=== PATIENT | female | born 1980 | race Caucasian/White ===

== ENCOUNTER 2017-04-21 15:56 | Observation (INO) | payer BC ==
[~2017-04-21] VITALS: Ht 157.5 cm; Wt 90.5 kg
--- NOTE | ~2017-04-21 | CN ---
PATIENT NAME:VICTOR HUGO PLAZA MEDICAL RECORD: [id number] : 76 LOCATION:D. D.2123 ADMIT DATE: 04/21/17 ACCOUNT: [id number] CONSULTING PHYSICIAN: SARAH RIDER MD REFERRING PHYSICIAN: JOY GARCIA MD DATE OF CONSULTATION: 04/22/2017 HISTORY OF PRESENT ILLNESS: A 36-year-old female was followed me with a history of SVT, typically qkzs-lb-lny-pocket therapy episode yesterday that lasted approximately 6 months ago, noninvasive workup negative for ischemic focus. We were asked to her concerning her cardiovascular status. PAST MEDICAL HISTORY: Includes: 1. History of SVT. 2. Remote history of seizure disorder. 3. Migraines. MEDICATIONS: Rythmol, ysjp-ji-wxa-pocket therapy. ALLERGIES: None known. SOCIAL HISTORY: She is a nonsmoker. She is able to take care of her ADLs. 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 REVIEW OF SYSTEMS: The patient reports easy bruising but reports no swollen glands. The patient reports no fever, no night sweats, no significant weight gain, no significant weight loss. No significant exercise tolerance. The patient reports no dry eyes, no irritation, no vision change. Patient reports no difficulty hearing and no ear pain. Patient reports no frequent nose bleeds or nose and sinus problems. Patient reports on arm pain on exertion. No shortness of breath while lying down. No history of heart murmur. Patient reports no cough, no wheezing or coughing up blood. Patient reports no abdominal pain, no vomiting. Normal appetite. No diarrhea and not vomiting blood. No nausea and no constipation. Patient reports no incontinence. No difficulty urinating. No hematuria. No increased frequency. Patient reports no muscle aches. No weakness, no arthralgias, no back pain. No swelling of the extremities. Patient reports no abnormal mole, no jaundice, no rashes. Reports no loss of consciousness. No weakness and no numbness. No seizures, dizziness, or headaches. The patient reports no depression, no sleep disturbance, feeling safe in a relationship and no alcohol abuse. Patient reports on fatigue. Reports no runny nose or sinus pressure. No itching, no hives, and no frequent sneezing. PHYSICAL EXAMINATION: GENERAL: Pleasant female, appears stated age. No acute distress. VITAL SIGNS: Pulse currently 60 and regular, blood pressure 118/64. HEENT: Normocephalic and atraumatic. NECK: No JVD or bruit. HEART: Regular. LUNGS: Levin are clear. ABDOMEN: Soft, nontender. EXTREMITIES: Pulse 2+. No edema. DIAGNOSTIC DATA: ECG is normal. CONSULT REPORT [id number] VICTOR HUGO PLAZA PLAN: We will check echocardiographic study. It has been over a year since her previous study. At this point in time, I do not think we were obligated to daily medications at this point for arrhythmias. TRANSINT:[id number] Voice Confirmation ID: [id number] DOCUMENT ID: [id number] SARAH RIDER MD CC: [id number] DICTATION DATE: 04/22/17839 CONSUMER STUDIES PROFESSOR: 04/22/17 190 [address] [place] [id number] [place] [id number]
[2017-04-21 16:33] LABS: BASOPHILS 0.2 % (0-2); EOSINOPHILS 1.2 % (0-7); HEMATOCRIT 41.3 % (36.0-48.0); HEMOGLOBIN 14.3 g/dL (12-16); IMMATURE GRANULOCYTES 0.2 % (0-5); LYMPHOCYTES 23.5 % (15-50); MCH 29.2 pg (26.0-34.0); MCHC 34.6 g/dL (31.0-37.0); MCV 84.3 fL (80.0-100.0); MEAN PLATELET VOLUME 9.9 fL (7.4-10.4); MONOCYTES 5.3 % (2-11); NEUTROPHILS 69.6 % (40-80); PLATELET COUNT 287 10x3/uL (130-400); RDW 13.2 % (11.5-14.5); WBC 10.8 10x3/uL (4.8-10.8)
[2017-04-21 16:49] LABS: APTT 29.5 SECONDS (22.8-39.4); INR 0.98 (0.85-1.17); PROTIME 12.9 SECONDS (11.6-15.0)
[2017-04-21 16:54] LABS: ALBUMIN 4.2 g/dL (3.4-5.0); ALKALINE PHOSPHATASE 93 U/L (46-116); ALT (SGPT) 59 U/L (10-68); CALC OSMOLALITY 277 mosm/kg (275-300); CALCIUM 9.3 mg/dL (8.5-10.1); CARBON DIOXIDE 24.4 mmol/L (21.0-32.0); CHLORIDE - SERUM 103 mmol/L (98-107); CREATININE - SERUM 0.9 mg/dL (0.6-1.3); GLUCOSE 98 mg/dL (74-106); POTASSIUM - SERUM 3.7 mmol/L (3.5-5.1); PROTEIN - SERUM 7.8 g/dL (6.4-8.2); SODIUM 140 mmol/L (136-145); UREA NITROGEN 11 mg/dL (7-18); eGFR NON AFRICAN AMERICAN 74 mL/min (90-120)
[2017-04-21 17:03] LABS: CHOLESTEROL, TOTAL 218 mg/dL (0-200); CKMB 0.5 U/L (0.0-3.6); CREATINE KINASE 105 UL (21-215); HDL CHOLESTEROL 31 mg/dL (32-96); LDL CHOLESTEROL 130 mg/dL (0-100); LDL-HDL RATIO 4.2 ratio (1.5-3.5); TRIGLYCERIDE 289 mg/dL (30-200); TROPONIN-I < 0.017 ng/mL (0.000-0.060)
[2017-04-21 17:19] LABS: UDS - AMPHET NEGATIVE QUAL (NEGATIVE); UDS - BARB NEGATIVE QUAL (NEGATIVE); UDS - BENZO NEGATIVE QUAL (NEGATIVE); UDS - COCAINE NEGATIVE QUAL (NEGATIVE); UDS - METH NEGATIVE QUAL (NEGATIVE); UDS - OPIATE NEGATIVE QUAL (NEGATIVE); UDS - PCP NEGATIVE QUAL (NEGATIVE); UDS - THC NEGATIVE QUAL (NEGATIVE)
[2017-04-21 17:21] LABS: APPEARANCE HAZY (CLEAR); BILIRUBIN NEGATIVE (NEGATIVE); COLOR STRAW (YELLOW); GLUCOSE NEGATIVE (NEGATIVE); KETONE NEGATIVE (NEGATIVE); LEUKOCYTE ESTERASE TRACE (NEGATIVE); NITRITE NEGATIVE (NEGATIVE); PROTEIN NEGATIVE (NEGATIVE); SPECIFIC GRAVITY 1.015 (1.005-1.020); UROBILINOGEN NORMAL (NORMAL)
[2017-04-21 17:26] LABS: BACTERIA MODERATE /hpf (NONE SEEN); RED CELLS - URINE RARE /hpf (0-5)
[2017-04-21 19:00] VITALS: BP 162/100
--- NOTE | 2017-04-21 20:22 | NUR ---
RECEIVED FROM ER, PT IV-RAC-SL TELEMTRY- BED IS LOW, CALL LIGHT IN REACH,PT IS UP AB JIM,
[2017-04-21 22:30] LABS: CKMB 0.2 U/L (0.0-3.6); CREATINE KINASE 74 UL (21-215)
[2017-04-21 22:31] LABS: TROPONIN-I < 0.017 ng/mL (0.000-0.060)
--- NOTE | 2017-04-21 22:37 | NUR ---
ZOFRAN 4MG IVP GIVEN FOR NAUSEA TO RIGHT FOREARM. REASSESSMENT OF BP 146/94. WILL CONTINUE TO MONITOR.
[2017-04-21 22:56] VITALS: BP 162/100; Ht 157.5 cm; Wt 90.5 kg
--- NOTE | 2017-04-21 23:56 | NUR ---
EKG COMPLETE, DENIES ANY NEEDS, CALL LIGHT IN REAC
[2017-04-22] VITALS: BP 126/95
--- NOTE | 2017-04-22 01:21 | NUR ---
02-2L, IV-LAC, [id number]-DA, NPO SINCE MIDNIGHT, POSSIBLE CATH IN AM, CONSENT SIGHED, BED IS LOW, SRX2, CALL LIGHT IN REACH, AT BEDSIDE, WILL CONTINUE PLAN OF CARE
[2017-04-22 04:00] VITALS: BP 142/78
[2017-04-22 05:33] LABS: CKMB 0.4 U/L (0.0-3.6); CREATINE KINASE 62 UL (21-215); TROPONIN-I < 0.017 ng/mL (0.000-0.060)
--- NOTE | 2017-04-22 07:24 | NUR ---
ASSESSMENT DONE. DENIES NEEDS.
[2017-04-22 08:00] VITALS: BP 132/85
--- NOTE | 2017-04-22 10:24 | NUR ---
SHOE STOCK ASSOCIATE AT BS. WILL MONITOR NEEDS.
[2017-04-22 10:31] LABS: CKMB 0.2 U/L (0.0-3.6); CREATINE KINASE 61 UL (21-215); TROPONIN-I < 0.017 ng/mL (0.000-0.060)
[2017-04-22 12:00] VITALS: BP 138/89
[2017-04-22 16:00] VITALS: BP 137/89
--- NOTE | 2017-04-22 18:02 | NUR ---
WITHOUT CHANGES OR DISTRESS NOTED AT THIS TIME. DENIES NEEDS.
[2017-04-22 19:00] VITALS: BP 139/88
--- NOTE | 2017-04-22 19:15 | NUR ---
RECEIVED REPORT, DENIES ANY NEEDS AT THIS TIME, BED IS LOW, SRX2,CALL LIGHT IN REACH, WILL CONTINUE PLAN OF CARE
--- NOTE | 2017-04-22 23:45 | NUR ---
PT RESTING WELL WITHOUT C/O OR DISTRESS NOTED. NO CHANGES NOTED IN ASSESSMENT. CALL LIGHT WITHIN REACH. WILL CONT TO MONITOR.
--- NOTE | 2017-04-23 02:30 | NUR ---
ASSESSMENT COMPLETE, SEE FLOWSHEET, PT IS SLEEPING, BED IS LOW, SRX2, CALL LIGHT IN REACH, WILL CONTINUE PLAN OF CARE
[2017-04-23 04:00] VITALS: BP 149/91
[2017-04-23 05:11] LABS: BASOPHILS 0.1 % (0-2); EOSINOPHILS 2.4 % (0-7); HEMATOCRIT 39.6 % (36.0-48.0); HEMOGLOBIN 13.4 g/dL (12-16); IMMATURE GRANULOCYTES 0.1 % (0-5); LYMPHOCYTES 26.1 % (15-50); MCH 28.9 pg (26.0-34.0); MCHC 33.8 g/dL (31.0-37.0); MCV 85.3 fL (80.0-100.0); MONOCYTES 6.1 % (2-11); NEUTROPHILS 65.2 % (40-80); PLATELET COUNT 206 10x3/uL (130-400); RBC 4.64 10x6/uL (4.00-5.40); RDW 13.5 % (11.5-14.5); WBC 8.3 10x3/uL (4.8-10.8)
[2017-04-23 05:28] LABS: CALC OSMOLALITY 281 mosm/kg (275-300); CALCIUM 8.8 mg/dL (8.5-10.1); CARBON DIOXIDE 29.2 mmol/L (21.0-32.0); CHLORIDE - SERUM 104 mmol/L (98-107); CREATININE - SERUM 0.8 mg/dL (0.6-1.3); GLUCOSE 96 mg/dL (74-106); POTASSIUM - SERUM 3.8 mmol/L (3.5-5.1); SODIUM 142 mmol/L (136-145); UREA NITROGEN 9 mg/dL (7-18); eGFR NON AFRICAN AMERICAN 85 mL/min (90-120)
[2017-04-23 08:03] VITALS: BP 137/82
--- NOTE | 2017-04-23 08:10 | NUR ---
PATIENT RESTING QUIETLY IN HER BED WITH MALE RELIGION PROFESSOR. HER RESPIRATIONS ARE DEEP AND EVEN. NO NEEDS NOTED. VSS, CALL LIGHT IS WITHIN HER REACH. MONITORING.
[2017-04-23 11:46] VITALS: BP 142/97
--- NOTE | 2017-04-23 12:30 | NUR ---
PATIENT IS RESTING IN HER BED, HEAD UP 60 DEGREES. SHE STATES THAT SHE HAS BEEN SLEEPING MOST OF THE MORNING BUT DOESN'T FEEL RESTED. HER RRR, LUNGS ARE SOMEWHAT DIMINISHED IN THE LOWEST BASES. BOWELS ARE HYPOACTIVE. SHE HASN'T HAD BM. C/O SLIGHT ALVAREZ THAT WON'T GO AWAY.
[2017-04-23] MEDS ORDERED: LISINOPRIL5 MG PO (14:06)
--- NOTE | 2017-04-23 15:37 | NUR ---
REVIEWED PATIENT'S DISCHARGE INSTRUCTIONS. DISCUSSED LISINOPRIL AND THE NEEDS FOR HER TO MONITOR THE EFFECTIVENESS AND BE MINDFUL FOR SIDE EFFECTS. DISCUSSED NEED FOR REST AND TO RETURN TO WORK AFTER FOLLOW UP APPT WITH THE MD.
--- NOTE | 2017-04-25 10:11 | EC ---
PATIENT:VICTOR HUGO PLAZA DATE OF SERVICE: 04/21/17 SEX: F MEDICAL RECORD: [id number] DATE OF : [birth year] LOCATION:D.M2 D.212 AGE OF PATIENT: 36 ADMISSION DATE: 04/21/17 REFERRING PHYSICIAN: INTERPRETING PHYSICIAN: MADELEINE NG MD ECHOCARDIOGRAM REPORT ECHO CHARGES 4 ECHO COMPLETE CLINICAL DIAGNOSIS: SVT ECHOCARDIOGRAPHIC MEASUREMENTS (adult normal given) AC root (d.<3.7cm) 3.1 LV Septum d (<1.2 cm> 1.2 Valve Excursion 2.2 LV Septum (systole) 1.8 Left Atria (s.<4.0cm> 4.3 LVPW d(<1.2cm) 1.2 RV (d.<2.3cm) 2.6 LVPW (sytole) 2.0 LV diastole(<5.6CM) 5.7 MV E-F(>70mm/sec) LV systole 3.1 LVOT Diameter 2.1 MV exc.(>10mm) Est.ejection fraction (50-75%) Pericardial Effusion N DOPPLER: LVIT A 56.0 E 83.0 LA RVSP LVOT 93.0 AOP1/2T Asc. Ao 140 RVOT 74.0 RA PA 92.0 AV Gradient Peak 7.8 AV Mean 4.5 AV Area 1.8 MV Gradient Peak 4.1 MV Mean 1.2 MV Area COMMENTS: Seeing Eye Dog Teacher: Jeovany DURBINOE Tapeman:Alin Cook TAPE# PACS DATE OF SERVICE: 04/22/2017 ECHOCARDIOGRAM FINDINGS: 1. Left ventricular chamber size is within normal limits. Left ventricular systolic function is normal. Overall ejection fraction estimated at 55%. 2. Left atrium is enlarged at 4.3 cm. Right atrium and right ventricular chamber sizes are upper limits of normal. 3. Valvular structures have normal structure and motion. ECHOCARDIOGRAM REPORT [id number] VICTOR HUGO PLAZA 4. Doppler interrogation reveals no significant valvular insufficiency or stenosis. Pulmonary systolic pressure is normal estimated at 20 mmHg. 5. No evidence of pericardial effusion or left ventricular thrombus. TRANSINT:[id number] Voice Confirmation ID: [id number] DOCUMENT ID: [id number] MADELEINE NG MD at 1011 CC: [id number] DICTATION DATE: 04/22/171716 PLAY LEADER: 04/23/17 0154 DIS IN 04/23/17 [facility] [address] [place] [id number]
== END 2017-04-23 15:40 | disposition home or self-care (01) ==
LOC: D.ER 15:56 → D.M2 18:21 → OBSVTIME 18:21 → D.M2 18:21
PROVIDERS: Emergency Medicine; ADMIT Family Medicine Adult Medicine
DX: I16.0 Hypertensive urgency (principal); I47.1 Supraventricular tachycardia; R51 Headache

== ENCOUNTER → 2017-10-27 13:48 | Outpatient (CLI) | payer BC ==
[2017-04-21 22:56] VITALS: BMI 34.8
[~2017-10-27 13:48] MED LIST: LISINOPRIL5 MG PO
== END | disposition home or self-care (01) ==
LOC: D.MRI 13:48
DX: R51 Headache (principal)

== ENCOUNTER → 2018-01-24 09:54 | Outpatient (CLI) | payer BC ==
[2017-04-21 22:56] VITALS: BMI 34.8
--- NOTE | ~2018-01-24 | EC ---
PATIENT:VICTOR HUGO PLAZA DATE OF SERVICE: 01/24/18 SEX: F MEDICAL RECORD: [id number] DATE OF : [birth year] [facility]GE OF PATIENT: 37 ADMISSION DATE: 01/24/18 REFERRING PHYSICIAN: INTERPRETING PHYSICIAN: KRISSY SPAULDING MD ECHOCARDIOGRAM REPORT ECHO CHARGES 4 ECHO COMPLETE CLINICAL DIAGNOSIS: CHEST PAIN, HTN, DYSPNEA, PALPS ECHOCARDIOGRAPHIC MEASUREMENTS (adult normal given) AC root (d.<3.7cm) 3.7 cm LV Septum d (<1.2 cm> 1.7 cm Valve Excursion 1.8 cm LV Septum (systole) 2.0 cm Left Atria (s.<4.0cm> 4.2 cm LVPW d(<1.2cm) 1.9 cm RV (d.<2.3cm) 3.6 cm LVPW (sytole) 2.0 cm LV diastole(<5.6CM) 4.1 cm MV E-F(>70mm/sec) cm LV systole 2.7 cm LVOT Diameter 2.0 cm MV exc.(>10mm) 2.1 cm Est.ejection fraction (50-75%) % Pericardial Effusion N DOPPLER: LVIT cm/sec A 93.0 cm/sec E 65.0 cm/sec LA cm/sec RVSP 23 mmHg LVOT 83 cm/sec AOP1/2T m/s Asc. Ao 141 cm/sec RVOT 73 cm/sec RA cm/sec PA 109 cm/sec AV Gradient Peak 7.99 mmHg AV Mean 4.32 mmHg AV Area 1.7 cm MV Gradient Peak 2.87 mmHg MV Mean 1.07 mmHg MV Area cm COMMENTS: Western Felt Hat Blocker: Shiloh LAZARO Tail Worker: Gabriel Spaulding TAPE# PACS DATE OF SERVICE: 01/24/2018 PROCEDURE: Transthoracic echocardiogram. FINDINGS: 1. Left ventricle shows mild left ventricular hypertrophy. Overall, ejection fraction is 65%. Inflow characteristics show diastolic dysfunction. 2. The left atrium is mildly dilated. 3. The aortic valve is normal. 4. The mitral valve has trace mitral regurgitation. ECHOCARDIOGRAM REPORT [id number] VICTOR HUGO PLAZA 5. The tricuspid valve has trace tricuspid regurgitation. 6. The pericardium is normal. 7. The right ventricle is mildly dilated. 8. The right atrium is normal size, normal function. 9. The pulmonic valve is normal. CONCLUSIONS: This patient has evidence of mild hypertensive heart disease and diastolic dysfunction, otherwise normal echocardiogram. TRANSINT:[id number] Voice Confirmation ID: [id number] DOCUMENT ID: [id number] KRISSY SPAULDING MD at 0755 CC: [id number] DICTATION DATE: 01/25/18 0738 MICROFILMER: 01/25/18 0815 DEP CLI 01/24/[address] [address]
[~2018-01-24 09:54] MED LIST changes: +LOPRESSOR25 MG PO; +PROPAFENONE HC225 MG PO
== END | disposition home or self-care (01) ==
LOC: D.ECHO 09:54
DX: R07.9 Chest pain, unspecified (principal); R06.02 Shortness of breath; I10 Essential (primary) hypertension; R00.2 Palpitations

== ENCOUNTER 2018-02-01 15:06 | Observation (INO) | payer BC ==
[~2018-02-01] VITALS: Ht 160 cm; Wt 90.6 kg
--- NOTE | ~2018-02-01 | HEMODYNAMI ---
PATIENT:VICTOR HUGO PLAZA MEDICAL RECORD: [id number] : 76 [facility] ADMISSION DATE: 02/01/18 Generatedon:02/02/201812:20 Patient name: VICTOR HUGO PLAZA Patient #: [id number] SSN: DO B: 1980 Date of study: 02/02/2018 Page: Of Hemodynamic Procedure Report Patient Data Patient Demographics Procedure consent was obtained First Name: VICTOR HUGO Gender: Female Last Name: BOLA : 1980 Patient #: [id number] Age: 37 year(s) Race: Unknown Additional ID: [id number] Contact details Address: [address] [place] [address] STREET State: [place] City: [place] Zip code: [address] Past Medical History Allergies: No known allergies Admission Admission Data Admission Date: 02/01/2018 Admission Time: 15:06 Room #: D2103 Lab Results Lab Result Date: 02/02/2018 Lab Result Time: 0:00 Biochemistry Name Units Result Min Max BUN mg/dl 15 --(--*-)-- 7 18 Creatinine mg/dl 0.8 --(-*--)-- 0.6 1.3 CBC Name Units Result Min Max Hemoglobin g/dl 12.6 -*(----)-- 13.5 17.5 Procedure Procedure Types Cath Procedure Diagnostic Procedure LHC LHC w/Coronaries Peripheral Cath Diagnostic Procedure Cath Peripheral Renal Arteriogram Procedure Description Procedure Date Procedure Date: 02/02/2018 Procedure Start Time: 12:02 Procedure End Time: 12:19 Procedure Staff Name Function Mac Mcbride MD Performing Physician Sukhwinder Mcdonnell RT Monitor Melvin Smith RN Nurse Marysol Levin RT Scrub Procedure Data Cath Procedure Fluoroscopy Diagnostic fluoroscopy Total fluoroscopy Time: 1.7 time: 1.7 min min Diagnostic fluoroscopy Total fluoroscopy dose: 448 dose: 448 mGy mGy Contrast Material Contrast Material Type Amount (ml) Isovue 300 42 Entry Location Entry Primary Successful Side Size Upsize Upsize Entry Closure Succes sful Closure Location (Fr) 1 (Fr) 2 (Fr) Remarks Device Remarks Femoral Right 5 Fr Exoseal artery Estimated blood loss: 10 ml Diagnostic catheters Device Type Used For End Catheter Placement MULTIPACK JL 4.0 5Fr Procedure catheter MULTIPACK 3DRC 5Fr Procedure catheter MULTIPACK Pigtail 5 Fr Procedure catheter Procedure Complications No complications Procedure Medications Medication Administration Route Dosage 0.9% NaCl I.V. 100 ml/hr Oxygen NC 2 l/min Heparin Flush Bag added to field 2 bags (1000units/500ml NS) Lidocaine 2% added to field 20 Versed I.V. 1 mg Fentanyl I.V. 50 mcg Hemodynamics Rest HGB: 12.6 (g/dl) Heart Rate: 84 (bpm) Pressure Samples Time Site Value (mmHg) Purpose Heart Use Rate(bpm) 12:11 LV 144/-12,14 EDP 80 12:11 AO 133/91(110) Pullback 78 12:11 LV 141/18,28 Pullback 78 Gradients Valve Time Site 1 Site 2 Mean SEP/DFP Peak To Heart Use (mmHg) (sec/min) Peak Rate (mmHg) (bpm) Aortic 12:11 LV AO 7 14 8 78 141/18,28 133/91(110) Calculations Valve P-P Mean Valve Index Valve Source Name Gradient Area Flow (cm2) Aortic 8 7 8 7 Snapshots Pre Cath Intra NCS Post Cath Vital Signs Time Heart Resp SPO2 etCO2 NIBP (mmHg) Rhythm Pain Sedation Rate (ipm) (%) (mmHg) Status Level (bpm) 11:57:44 79 16 100 43.9 144/102(121) NSR 0 (11) 10(A) , No pain 12:02:20 74 8 97 40.2 139/97(114) NSR 0 (11) 10(A) , No pain 12:07:35 66 17 97 40.2 146/98(118) NSR 0 (11) 9(A) , No pain 12:12:10 91 16 96 40.2 144/97(115) NSR 0 (11) 10(A) , No pain 12:16:48 78 17 96 38.7 139/86(116) NSR 0 (11) 10(A) , No pain Medications Time Medication Route Dose Verified Delivered Reason Notes Effe ctiveness by by 11:56:16 0.9% NaCl I.V. 100 Melvin Melvin Per ml/hr Luis Smith physician RN RN 11:56:28 Oxygen NC 2 Melvin Melvin Per l/min Luis Smith physician RN RN 11:56:39 Heparin Flush added 2 Melvin Melvin used for Bag to bags Luis Smith procedure (1000units/500ml field RN RN NS) 11:56:53 Lidocaine 2% added 20ml Melvin Melvin for local to vial Lorigan Leilaniigan anesthetic field RN RN 12:01:15 Versed I.V. 1 mg Melvin Melvin for Lorigan Lorigan sedation RN RN 12:01:25 Fentanyl I.V. 50 Melvin Melvin for mcg Lorigan Lorigan sedation RN broth mixer Log Time Note 11:34:01 Time tracking: Regular hours 11:34:05 Plan of Care:Hemodynamics will remain stable., Cardiac rhythm will remain stable., Comfort level will be maintained., Respiratory function will remain adequate., Patient/ family verbilizes understanding of procedure., Procedure tolerated without complication., Recovers from procedure without complications.. 11:35:36 H&P Date Dictated: 02/01/2018 Within 30 days and on chart.. 11:35:46 Patient allergic to No known allergies 11:36:24 Lab Result : Creatinine 0.8 mg/dl 11:36:24 Lab Result : BUN 15 mg/dl 11:36:24 Lab Result : Hemoglobin 12.6 g/dl 11:36:46 Melvin Smith RN sent for patient. Start room use. 11:47:03 Patient received from PCU to CCL 1 Alert and oriented. Tansferred to table in Supine position. 11:47:05 Warm blankets applied, and john hugger turned on for patient comfort. 11:47:06 Correct patient and procedure confirmed by team. 11:47:07 Signed procedure consent form obtained from patient. 11:47:08 ECG and BP/O2 sat monitors applied to patient. 11:56:16 0.9% NaCl 100 ml/hr I.V. was administered by Melvin Smith RN; Per physician; 11:56:28 Oxygen 2 l/min NC was administered by Melvin Smith RN; Per physician; 11:56:39 Heparin Flush Bag (1000units/500ml NS) 2 bags added to field was administered by Melvin Smith RN; used for procedure; 11:56:53 Lidocaine 2% 20ml vial added to field was administered by Melvin Smith RN; for local anesthetic; 11:56:56 Vital chart was started 11:58:19 Baseline sample Acquired. 11:58:23 Rhythm: sinus rhythm 11:58:25 Full Disclosure recording started 11:58:26 Pre-procedure instructions explained to patient. 11:58:27 Pre-op teaching completed and patient verbalized understanding. 11:58:29 Family in patients room. 11:58:31 Patient NPO since Midnight. 11:58:33 Is the patient allergic to Iodine/contrast media? No. 11:58:36 Is patient on blood thinner?Yes 11:58:38 ACC The patient was administered the following blood thiners within the last 24 hours: ACCPlavix 11:58:47 Patient diabetic? No. 11:59:23 HCG/Urine : completed and on chart, negative 11:59:26 Previous problem with sedation/anesthesia? No ? 11:59:29 Snore? Yes 11:59:31 Sleep apnea? No 11:59:32 Deviated septum? No 11:59:33 Opens mouth fully? Yes 11:59:34 Sticks out tongue? Yes 11:59:36 Airway obstruction? No ? 11:59:39 Dentures? No ? 11:59:57 Pre procedure: right dorsailis pedis pulse 1+ Palpable, but thready & weak; easily obliterated 12:00:00 Patient pain scale 0/10 ?. 12:00:09 IV patent on arrival in left hand with 0.9% NaCl at [facility]. 12:00:12 Lab results completed and on chart. 12:00:18 Right groin area was prepped with chlora-prep and draped in sterile fashion 12:00:20 Alarms reviewed by R. N. 12:00:21 Sharps counted by scrub and verified by R.N. 12:00:23 --------ALL STOP TIME OUT------ 12:00:23 Final Timeout: patient, procedure, and site verified with staff and physician. All members of the team are in agreement. 12:00:25 Right groin site verified by team. 12:00:28 Physical assessment completed. ASA score P 2 - A patient with mild systemic disease as per Mac Mcbride MD. 12:00:31 Sedation plan: IV Moderate Sedation Medication:Versed, Fentanyl 12:01:15 Versed 1 mg I.V. was administered by Melvin Smith RN; for sedation; 12:01:25 Fentanyl 50 mcg I.V. was administered by Melvin Smith RN; for sedation; 12:02:01 Use device set Femoral Dx 12:02:04 Tegaderm 4 x 4 (1626W) opened to sterile field. 12:02:05 PERCUTANEOUS ENTRY 19GA needle opened to sterile field. 12:02:07 ACIST Manifold (18098) opened to sterile field. 12:02:08 ACIST Hand Control (62859) opened to sterile field. 12:02:10 ACIST Syringe (65119) opened to sterile field. 12:02:10 Bag Decanter (2002S) opened to sterile field. 12:02:11 Medline Cath Pack ([id number]) opened to sterile field. 12:02:15 DIAGNOSTIC WIRE .035 260cm J wire (822519) opened to sterile field. 12:02:17 DIAGNOSTIC Multipack 5Fr catheter set (VT5390) opened to sterile field. 12:02:18 MICROPUNCTURE 4FR Cook ([id number]) opened to sterile field. 12:02:50 SHEATH Prelude 5Fr 0.035 (CNZ-2L-57-035) opened to sterile field. 12:02:55 Procedure started. 12:02:59 Local anesthetic to right femoral artery with Lidocaine 2% by Mac Mcbride MD.INITIAL ACCESS ONLY 12:04:20 Access obtained with 4Fr micropunture. 12:04:24 A 5 Fr sheath was inserted into the Right Femoral artery 12:05:17 A MULTIPACK JL 4.0 5Fr catheter was advanced over the wire and used for Procedure. 12:06:03 LCA angiography performed. 12:06:35 Catheter exchanged over wire. 12:07:16 A MULTIPACK 3DRC 5Fr catheter was advanced over the wire and used for Procedure. 12:08:48 Right renal angiography performed. 12:09:09 Left renal angiography performed. 12:10:21 RCA angiography performed. 12:10:23 Catheter exchanged over wire. 12:10:30 A MULTIPACK Pigtail 5 Fr catheter was advanced over the wire and used for Procedure. 12:11:06 LV angiography performed. 12:11:07 LV gram done using SOL 12:11:41 EF : 65 % 12:11:44 LV hemodynamics recorded. 12:11:48 Injector settings: Ml/sec: 12, Volume: 8, 12:11:51 Catheter removed. 12:11:54 EXOSEAL 5Fr (EX500) opened to sterile field. 12:12:16 Sheath removed intact; hemostasis achieved with Exoseal to the Right Femoral artery. 12:12:18 Procedure ended.(Physican Out) 12:12:57 Fluoroscopy time 01.70 minutes. 12:14:34 Fluoroscopy dose: 448 mGy 12:14:34 Flurop Dose total: 448 12:14:38 Contrast amount:Isovue 300 42ml. 12:14:40 Sharps counted by scrub and verified by R.N. 12:14:42 Insertion/operative site no bleeding no hematoma. 12:14:47 Post-op/insertion site Right Femoral artery dressed using a 4 x 4 and Tegaderm. 12:14:51 Post-procedure physical assessment completed. ASA score P 2 - A patient with mild systemic disease as per Mac Mcbride MD. 12:14:55 Post procedure rhythm: unchanged. 12:14:58 Estimated blood loss: 10 ml 12:15:00 Post procedure instruction explained to patient.Patient verbalizes understanding. 12:15:01 Patient needs reinforcement of post procedure teaching. 12:15:13 Procedure and supply charges have been captured, reviewed, submitted and are correct. 12:15:16 Procedure Complication : No complications 12:19:35 Vital chart was stopped 12:19:36 See physician's report for complete and final results. 12:19:38 Report given to Pre/Post Procedure Room. 12:19:43 Patient transfered to Pre/Post Procedure Room with Stretcher. 12:19:46 Procedure ended. 12:19:46 Full Disclosure recording stopped 12:19:54 End room use (Document Last) Device Usage Item Name Manufacture Quantity Catalog Number Hospital Part Current M inimal Lot# / Charge Number Stock Stock Serial# Code Tegaderm 4 x 4 3M 1 1626W [id number] 015546 448766 5 (1626W) PERCUTANEOUS [employer] 1 [id number] 293078 738284 5 ENTRY 19GA needle ACIST Manifold Acist 1 94246 962713 785948 681454 5 (40577) [employer] Inc ACIST Hand Acist 1 71951 366039 387888 620878 5 Control (38143) [employer] Inc ACIST Syringe Acist 1 25495 955558 865655 430597 2 0 (02831) [employer] Inc Bag Decanter Microtek 1 2002S 030202 80806 253778 5 (2001S) Medical Inc. Medline Cath Cardinal 1 [id number] 705273 29525 084911 5 Pack Health ([id number]) DIAGNOSTIC WIRE [facility] 1 823315 054017 558165 564186 3 0 .035 260cm J wire (965627) DIAGNOSTIC Cardinal 1 JL0997 552599 25750 967980 3 0 Multipack 5Fr Health catheter set (OH1339) MICROPUNCTURE Cook Medical 1 L16695 524675 395465 187815 5 4FR Cook (P72778) SHEATH Prelude Merit 1 PEB-6C-91-035 096983 078801 643726 5 5Fr 0.035 Medical (DBI-8L-93-035) MULTIPACK JL Cardinal 1 098872 5 4.0 5Fr Health catheter MULTIPACK 3DRC Cardinal 1 218616 5 5Fr catheter Health MULTIPACK Cardinal 1 012802 5 Pigtail 5 Fr Health catheter EXOSEAL 5Fr Cardinal 1 EX500 591888 885585 943960 1 0 (EX500) Health Signature Audit [place] Stage Time Signature Unsigned Intra-Procedure 02/02/2018 Sukhwinder Mcdonnell 12:20:46 PM RT(R) Signatures Monitor : Sukhwinder Mcdonnell RT Signature : Date : Time : [address] [address] [place] [address]
[~2018-02-01 15:06] MED LIST changes: -LOPRESSOR25 MG PO; -PROPAFENONE HC225 MG PO
[2018-02-01] MEDS ORDERED: PROPAFENONE HC225 MG PO (16:01)
[2018-02-01 16:07] VITALS: BP 165/93; Ht 160 cm; Wt 90.6 kg
[2018-02-01 18:58] LABS: BASOPHILS 0.1 % (0-2); EOSINOPHILS 2.3 % (0-7); HEMATOCRIT 37.2 % (36.0-48.0); HEMOGLOBIN 12.8 g/dL (12-16); IMMATURE GRANULOCYTES 0.1 % (0-5); LYMPHOCYTES 28.6 % (15-50); MCH 28.3 pg (26.0-34.0); MCHC 34.4 g/dL (31.0-37.0); MCV 82.3 fL (80.0-100.0); MEAN PLATELET VOLUME 9.9 fL (7.4-10.4); MONOCYTES 5.9 % (2-11); RBC 4.52 10x6/uL (4.00-5.40); RDW 13.4 % (11.5-14.5); WBC 7.3 10x3/uL (4.8-10.8)
[2018-02-01 19:08] LABS: PLATELET COUNT 288 10x3/uL (130-400)
[2018-02-01 19:36] LABS: CALC OSMOLALITY 284 mosm/kg (275-300); CALCIUM 8.5 mg/dL (8.5-10.1); CARBON DIOXIDE 31.7 mmol/L (21.0-32.0); CHLORIDE - SERUM 105 mmol/L (98-107); CKMB 0.4 U/L (0.0-3.6); CREATINE KINASE 88 UL (21-215); CREATININE - SERUM 0.8 mg/dL (0.6-1.3); GLUCOSE 87 mg/dL (74-106); POTASSIUM - SERUM 3.3 mmol/L (3.5-5.1); SODIUM 144 mmol/L (136-145); UREA NITROGEN 10 mg/dL (7-18); eGFR NON AFRICAN AMERICAN 85 mL/min (90-120)
[2018-02-01 19:43] LABS: TROPONIN-I < 0.017 ng/mL (0.000-0.060)
[2018-02-01 20:00] VITALS: BP 139/89
[2018-02-02 00:53] LABS: CKMB 0.4 U/L (0.0-3.6); CREATINE KINASE 89 UL (21-215); TROPONIN-I < 0.017 ng/mL (0.000-0.060)
[2018-02-02 06:15] LABS: BASOPHILS 0.1 % (0-2); EOSINOPHILS 4.3 % (0-7); HEMATOCRIT 36.7 % (36.0-48.0); HEMOGLOBIN 12.6 g/dL (12-16); IMMATURE GRANULOCYTES 0.1 % (0-5); LYMPHOCYTES 28.6 % (15-50); MCH 28.5 pg (26.0-34.0); MCHC 34.3 g/dL (31.0-37.0); MEAN PLATELET VOLUME 9.7 fL (7.4-10.4); MONOCYTES 6.9 % (2-11); PLATELET COUNT 256 10x3/uL (130-400); RBC 4.42 10x6/uL (4.00-5.40); RDW 13.5 % (11.5-14.5); WBC 6.8 10x3/uL (4.8-10.8)
[2018-02-02 06:42] VITALS: BP 155/74
[2018-02-02 06:43] LABS: CALCIUM 8.4 mg/dL (8.5-10.1); CARBON DIOXIDE 31.1 mmol/L (21.0-32.0); CHLORIDE - SERUM 105 mmol/L (98-107); CREATININE - SERUM 0.8 mg/dL (0.6-1.3); GLUCOSE 91 mg/dL (74-106); POTASSIUM - SERUM 3.7 mmol/L (3.5-5.1); SODIUM 143 mmol/L (136-145); eGFR NON AFRICAN AMERICAN 85 mL/min (90-120)
[2018-02-02 06:44] LABS: CALC OSMOLALITY 285 mosm/kg (275-300); CREATINE KINASE 272 UL (21-215); TROPONIN-I < 0.017 ng/mL (0.000-0.060); UREA NITROGEN 15 mg/dL (7-18)
[2018-02-02 10:25] VITALS: BP 114/69
[2018-02-02 10:46] LABS: HCG SERUM NEGATIVE (NEGATIVE)
[2018-02-02] MEDS ORDERED: LOPRESSOR25 MG PO (12:51)
== END 2018-02-02 14:35 | disposition home or self-care (01) ==
LOC: D.M2 15:06 → OBSVTIME 15:07 → D.CLR 02-02 13:28
PROVIDERS: Internal Medicine Cardiovascular Disease
DX: R07.9 Chest pain, unspecified (principal); I10 Essential (primary) hypertension; Z01.812 Encounter for preprocedural laboratory examination

== ENCOUNTER → 2018-02-01 17:37 | Outpatient (CLI) | payer BC ==
[2018-02-01 16:07] VITALS: BMI 35.5
[~2018-02-01 17:37] MED LIST changes: +LOPRESSOR25 MG PO; +PROPAFENONE HC225 MG PO
== END | disposition home or self-care (01) ==
LOC: D.LABREF 17:37
DX: I10 Essential (primary) hypertension (principal)

== ENCOUNTER 2018-07-02 01:06 | Emergency (ER) | payer BC ==
[~2018-07-02] VITALS: Ht 160 cm; Wt 93.0 kg
[2018-07-02 01:09] VITALS: Ht 160 cm; Wt 93.0 kg
[2018-07-02] MEDS ORDERED: CYCLOBENZAPRINE10 MG PO ×2 (01:10→03:36)
[2018-07-02] MEDS ORDERED: ACETAMINOPHEN500 M1 PO (03:36)
[2018-07-02] MEDS ORDERED: IBUPROFEN800 MG PO (03:36)
[2018-07-02 03:45] VITALS: BP 148/79
== END 2018-07-02 03:45 | disposition home or self-care (01) ==
LOC: D.ER 01:06
DX: M75.31 Calcific tendinitis of right shoulder (principal); M25.411 Effusion, right shoulder; M25.511 Pain in right shoulder; G40.909 Epilepsy, unspecified, not intractable, without status epilepticus; I10 Essential (primary) hypertension; I48.91 Unspecified atrial fibrillation

== ENCOUNTER → 2018-07-07 16:13 | Outpatient (CLI) | payer BC ==
[2018-07-02 01:09] VITALS: BMI 35.5
[~2018-07-07 16:13] MED LIST changes: +ACETAMINOPHEN500 M1 PO; +CYCLOBENZAPRINE10 MG PO; +IBUPROFEN800 MG PO
== END | disposition home or self-care (01) ==
LOC: D.MRI 16:00
DX: M25.511 Pain in right shoulder (principal)

== ENCOUNTER 2018-08-10 10:24 | Day surgery (SDC) | payer BC ==
[2018-08-09 09:31] LABS: HEMATOCRIT 37.6 % (36.0-48.0); HEMOGLOBIN 13.1 g/dL (12-16); MCH 28.5 pg (26.0-34.0); MCHC 34.8 g/dL (31.0-37.0); MCV 81.9 fL (80.0-100.0); RBC 4.59 10x6/uL (4.00-5.40); RDW 13.6 % (11.5-14.5); WBC 8.5 10x3/uL (4.8-10.8)
[~2018-08-10] VITALS: Ht 160 cm; Wt 92.1 kg
--- NOTE | ~2018-08-10 | OP ---
PATIENT NAME: VICTOR HUGO PLAZA MEDICAL RECORD: [id number] :76 LOCATION:[facility] ADMISSION DATE: SURGEON: CRISSY RODRIGUEZ, FARZANA MAHONEY DATE OF OPERATION: 08/10/2018 PREOPERATIVE DIAGNOSES: Rotator cuff tear of the right shoulder with impingement syndrome and biceps tendinitis. POSTOPERATIVE DIAGNOSES: Rotator cuff tear of the right shoulder with impingement syndrome and biceps tendinitis. PROCEDURES: 1. Arthroscopic rotator cuff repair of the right shoulder. 2. Arthroscopic biceps tenotomy of the right shoulder. 3. Arthroscopic distal clavicle excision - 1 cm done through separate incision. 4. Arthroscopic subacromial decompression with acromioplasty and bursectomy. SURGEON: Farzana Woodward MD ANESTHESIA: General. INTRAOPERATIVE COMPLICATIONS: None. SUMMARY OF PATHOLOGIC FINDINGS: The patient's bicipital labral complex and severe biceps tendinitis led to the decision to carry on with the biceps tenotomy along with the rotator cuff repair as well as subacromial decompression, distal clavicle excision as outlined above. OPERATIVE SUMMARY IN DETAIL: After obtaining the appropriate preoperative orthopedic surgery consent as well as anesthetic consultation, evaluation and clearance, the patient was brought to the operating room and placed on the operating table in supine position. After general laryngeal mask airway was administered, the patient was placed in a left lateral decubitus position. All pressure points were well padded to include down leg peroneal pad as well as axillary roll. The patient was held firmly to the operating table using the vacuum pack suction system. Right upper extremity and shoulder were then prepped and draped in a routine sterile fashion. The arm was held in the Arthrex traction boom at 30 degrees of forward flexion, 30 degrees of abduction, 10 pounds of traction laterally. Arthroscopy was established in the glenohumeral joint from the posterior portal and anterior portal through anterior safe interval. Diagnostic arthroscopy did reveal the above findings. Mild labral debridement was followed by surface tissue ablation release of the biceps tendon. Having completed that, a small transrotator cuff portal was created to debride the supraspinatus tendinous footprint. Attention was then turned to subacromial space. While in the subacromial space, Enfield tissue ablation system was used to denude the undersurface of the acromion of all soft tissue elements. A 5-0 barrel bur was then used to perform acromioplasty at the level of acromioclavicular joint. Through a separate anterior arthroscopic portal, distal clavicle was excised for 1 cm. Having completed this, all of the bursa was taken down anteriorly, laterally, superiorly and posteriorly. Lastly, a #2 FiberTape was placed in inverted mattress fashion and then anchored laterally with a 5-0 SwiveLock from Arth[employer]. Having completed this, arthroscopy portals were closed in routine interrupted fashion using 4-0 Prolene. Sterile dressings were applied. The patient was awakened and taken to the recovery room in stable condition. All final needle and sponge counts were correct. OPERATIVE REPORT [id number] VICTOR HUGO PLAZA TRANSINT:[id number] Voice Confirmation ID: [id number] DOCUMENT ID: [id number] CRISSY RODRIGUEZ, FARZANA MAHONEY at 1207 CC: [id number] DICTATION DATE: 08/21/18 0852 OIL BOILER: 08/21/18 1004 [facility] 08/10/18 [facility] [address] [place] [address]
[2018-08-10 10:31] VITALS: BP 152/104; Ht 160 cm; Wt 92.1 kg
[2018-08-10 12:36] LABS: HCG SERUM NEGATIVE (NEGATIVE)
[2018-08-10] MEDS ORDERED: NORCO 10-325 TA1 TAB PO (13:56)
== END 2018-08-10 16:10 | disposition home or self-care (01) ==
LOC: D.OPS 10:24 → D.PAN 12:00 → D.OPS 12:00 → D.PAN 14:00 → D.OPS 16:10
PROVIDERS: Anesthesiology
DX: M75.111 Incomplete rotator cuff tear or rupture of right shoulder, not specified as traumatic (principal); M75.41 Impingement syndrome of right shoulder; M75.21 Bicipital tendinitis, right shoulder; Z01.812 Encounter for preprocedural laboratory examination

== ENCOUNTER 2019-09-21 15:25 | Observation (INO) | payer BC ==
[~2019-09-21] VITALS: Ht 160 cm; Wt 93.3 kg
[2019-09-21] VITALS (9 sets, daily range): BP systolic 136–193; BP diastolic 92–123; BMI 36.4
[~2019-09-21 15:25] MED LIST changes: -LOPRESSOR25 MG PO; +METOPROLOL TART50 MG PO; +NORCO 10-325 TA1 TAB PO
[2019-09-21 15:58] LABS: BASOPHILS 0.3 % (0-2); EOSINOPHILS 1.8 % (0-7); HEMATOCRIT 39.5 % (36.0-48.0); HEMOGLOBIN 13.6 g/dL (12-16); IMMATURE GRANULOCYTES 0.1 % (0-5); LYMPHOCYTES 25.6 % (15-50); MCH 28.3 pg (26.0-34.0); MCHC 34.4 g/dL (31.0-37.0); MCV 82.3 fL (80.0-100.0); MEAN PLATELET VOLUME 9.7 fL (7.4-10.4); NEUTROPHILS 66.2 % (40-80); PLATELET COUNT 331 10x3/uL (130-400); RDW 13.5 % (11.5-14.5)
--- NOTE | 2019-09-21 16:00 | NUR ---
PT REPORTS SHE IS HAVING DIZZINESS AND FEELS A LOT OF PRESSURE IN CHEST "LIKE SOMETHING IS SITTING ON IT. UPON ENTERING PATIENT ROOM TO OBTAIN ANOTHER EKG PT HR IS 123. EPISODE LASTED APPROXIMATELY 3 MINUTES. AT 1604 PT HR IS 96.
[2019-09-21 16:01] LABS: INR 1.03 (0.85-1.17)
[2019-09-21 16:02] LABS: CALC OSMOLALITY 276 mosm/kg (275-300); CALCIUM 9.1 mg/dL (8.5-10.1); CARBON DIOXIDE 29.4 mmol/L (21.0-32.0); CHLORIDE - SERUM 103 mmol/L (98-107); CREATININE - SERUM 0.8 mg/dL (0.6-1.3); GLUCOSE 93 mg/dL (74-106); POTASSIUM - SERUM 3.2 mmol/L (3.5-5.1); SODIUM 140 mmol/L (136-145); UREA NITROGEN 8 mg/dL (7-18); eGFR NON AFRICAN AMERICAN 84 mL/min (90-120)
[2019-09-21 16:03] LABS: D-DIMER-QUANTITATIVE < 0.27 ug/mLFEU (0.20-0.54)
[2019-09-21 16:29] LABS: ALBUMIN 4.1 g/dL (3.4-5.0); ALKALINE PHOSPHATASE 99 U/L (46-116); ALT (SGPT) 43 U/L (10-68); BILIRUBIN - TOTAL 0.56 mg/dL (0.2-1.3); CKMB 0.3 U/L (0.0-3.6); CREATINE KINASE 87 UL (21-215); PROTEIN - SERUM 8.2 g/dL (6.4-8.2)
[2019-09-21 16:30] LABS: TROPONIN-I < 0.017 ng/mL (0.000-0.060)
--- NOTE | 2019-09-21 17:02 | NUR ---
updated edp on pt bp no new orders given at this time.
--- NOTE | 2019-09-21 18:11 | NUR ---
PT HR IS 165 AT THIS TIME. ADVISED EDP. NEW EKG OBTAINED. PT REPORTS SOB. NEW ORDERS GIVEN FOR CARDIAZEM.
--- NOTE | 2019-09-21 23:19 | NUR ---
RECEIVED REPORT FROM JOAN RN IN ER. ARRIVED TO FLOOR IN W/C. ALERT AND ORIENTED. UP AD JIM. C/O NAUSEA AND VOMITING. STATED SHE HAD THREW UP WHEN LEAVING ER. ZOFRAN GIVEN AND STATED RELIEF. ASLEEP WHEN CHECKING ON HER. ALLOWED PT TO REST BEFORE DOING ASSESSMENT D/T COMPLAINTS OF BEING TIRED. SPOUSE AT BEDSIDE. ASSESSMENT HAS BEEN COMPLETED AT THIS TIME.
[2019-09-22 00:15] VITALS: BP 151/97
[2019-09-22 04:18] VITALS: BP 127/72
--- NOTE | 2019-09-22 07:15 | NUR ---
ASSESMENT COMPLETE PT AAOX4 RESP UNLABORED SKIN W/D COLOR WNL PT DENIES ANY NEEDS AT THIS TIME WILL CONTINUE TO MONITOR
[2019-09-22 09:10] VITALS: BP 140/96
[2019-09-22 10:18] VITALS: Ht 160 cm; Wt 93.3 kg
--- NOTE | 2019-09-22 12:48 | NUR ---
REVIEWED DISCHARGE INSTRUCTIONS WITH PT STATES UNDERSTANDING COPY GIVEN DCD SALINE LOCK TO LAC WITH IV CATHETER INTACT SITE FREE OF REDNESS OR EDEMA PT DISCHARGE HOME IN STABLE CONDITION WITH ALL PERSONAL BELONGINGS LEFT UNIT AMB WITH
--- NOTE | 2019-09-24 09:27 | MORECARE ---
CASE MANAGEMENT DISCHARGE SUMMARY PATIENT: VICTOR HUGO PLAZA UNIT: [id number] ADM DATE: 09/21/19 AGE: 38 : 76 SEX: F ROOM/BED: D.2117 AUTHOR: ERNESTO SINGH PHYSICIAN: REFERRING PHYSICIAN: MADELEINE NG MD DATE OF SERVICE: 09/24/19 Discharge Plan Patient Name: VICTOR HUGO PLAZA [facility] [facility] 1980 Planned Disposition: Home Anticipated Discharge Date: 09/22/19 Discharge Date: 09/22/2019 Expected LOS: 1 Initial Reviewer: [email or web address] Initial Review Date: 09/24/2019 Generated: 09/24/19 10:26 am Patient Name: VICTOR HUGO PLAZA Page [id number] at 0927 All edits/amendments must be made on the electronic document DICTATION DATE: 09/24/19925 DIRECTOR OF ACCOUNTING: SHANIKA 09/24/19925 RPT#: [id number] DC DATE:09/22/19 STATUS: DIS IN [facility] [address] [place] [address] END OF REPORT
--- NOTE | 2019-09-24 09:28 | HP ---
PATIENT: VICTOR HUGO HEAD MEDICAL RECORD: [id number] ACCOUNT: [id number] LOCATION:.[facility].2117 : 76 ADMISSION DATE: 09/21/19 PCP: MARU SOLIS MD HISTORY AND PHYSICAL EXAMINATION DIAGNOSES: 1. Palpitations. 2. Hypertension. HISTORY OF PRESENT ILLNESS: Mrs. Head has had a large cardiac workup including echocardiogram, stress test and cardiac catheterization, all of which have been normal. She continues to have palpitation. She is on metoprolol 25 mg b.i.d. Systolic blood pressures as high as 200 with this and heart rates baseline in 100s, her thyroids have been normal as well. PHYSICAL EXAMINATION: CONSTITUTIONAL/GENERAL APPEARANCE: Well nourished, well developed, appears stated age. EYES: Lids and conjunctivae noninjected. No discharge. No pallor. ENT: Lips within normal limit. No cyanosis. No pallor. NECK: Carotid arteries, bilateral normal upstroke. No bruits. No thrills. No jugular venous pressure or distention. CERVICAL LYMPH NODES: Nontender. Nonenlarged. THYROID: Not enlarged. No nodules. CARDIOVASCULAR: Precordial exam, nondisplaced. No heaves or pericardial thrills. Rate and rhythm, regular. Heart sounds, normal S1, normal S2. No S3, no gallop, no rub. Systolic murmur, not heard. Diastolic murmur, not heard. RESPIRATORY: Respiratory effort, unlabored. Normal curvature. No thoracic deformity. No chest wall tenderness. Percussion, resonant. Auscultation, clear. No wheezes, no rales, no rhonchi. ABDOMEN: Soft, nondistended, nontender. No abdominal pain, no vomiting and normal appetite. MUSCULOSKELETAL: No joint tenderness, normal gait, normal tone. SKIN: Warm and dry. OVERALL IMPRESSION: Inappropriate sinus tachycardia with hypertension. At this time, we will increase the metoprolol and that should be all that is needed. TRANSINT:[id number] Voice Confirmation ID: [id number] DOCUMENT ID: [id number] MADELEINE NG MD at 0928 CC: [id number] DICTATION DATE: 09/22/19 1219 SHAPING MACHINE OPERATOR: 09/22/19 1228 DIS IN 09/22/19 [facility] [address] [place] [address]
--- NOTE | 2019-09-24 09:29 | DS ---
PATIENT:VICTOR HUGO HEAD :76 MEDICAL RECORD: [id number] DISCHARGE SUMMARY ADMISSION DATE: 09/21/19 DISCHARGE DATE: 09/22/19 DIAGNOSES: 1. Palpitations. 2. Hypertension. HOSPITAL COURSE: Mrs. Head presents with palpitation. She was on 25 mg of metoprolol b.i.d. She has had a full cardiac workup in the past with echocardiogram, stress test, and catheterization. These have all been normal. We increased her metoprolol to 100 mg b.i.d. She had no further palpitations. Systolic blood pressures in the 120s, heart rates in the 50s, resolution of all symptomatology. Discharged home on metoprolol 100 mg b.i.d. TRANSINT:[id number] Voice Confirmation ID: [id number] DOCUMENT ID: [id number] MADELEINE NG MD at 0929 CC: [id number] DICTATION DATE: 09/22/19 1218 [employer]IST: 09/23/19 0057 DIS IN 09/22/19 [facility] [id number] [place] [address]
[2019-09-27 20:07] LABS: META PL - METANEPHRINE <10 pg/mL (0-62); META PL - NORMETANEPHRINE 24 pg/mL (0-145)
== END 2019-09-22 12:48 | disposition home or self-care (01) ==
LOC: D.ER 15:25 → OBSVTIME 17:12 → D.M2 17:12
PROVIDERS: Family Medicine; ADMIT Internal Medicine Interventional Cardiology; ATTEND Internal Medicine Interventional Cardiology
DX: R00.2 Palpitations (principal); I10 Essential (primary) hypertension

== ENCOUNTER 2019-10-11 18:17 | Emergency (ER) | payer BC ==
[~2019-10-11] VITALS: Ht 160 cm; Wt 94.5 kg
[2019-10-11 18:20] VITALS: BP 177/103; Ht 160 cm; Wt 94.5 kg
[2019-10-11] MEDS ORDERED: TORADOL10 MG PO (19:28)
== END 2019-10-11 19:45 | disposition home or self-care (01) ==
LOC: D.ER 18:17
DX: S80.01XA Contusion of right knee, initial encounter (principal); W19.XXXA Unspecified fall, initial encounter; Y93.9 Activity, unspecified; Y92.9 Unspecified place or not applicable; Y99.0 Civilian activity done for income or pay; S50.02XA Contusion of left elbow, initial encounter; S40.012A Contusion of left shoulder, initial encounter; I10 Essential (primary) hypertension; I48.91 Unspecified atrial fibrillation

== ENCOUNTER → 2021-01-14 13:07 | Outpatient (CLI) | payer BC ==
[2020-09-09 15:09] VITALS: BMI 37.2
[~2021-01-14 13:07] MED LIST changes: +TORADOL10 MG PO
== END | disposition home or self-care (01) ==
LOC: D.HCCECHO 13:07
PROVIDERS: ATTEND Internal Medicine Cardiovascular Disease
DX: R06.00 Dyspnea, unspecified (principal)